=== PATIENT | male | born 1940 ===

== ENCOUNTER 2021-01-14 09:40 | Outpatient (CLI) | payer OTHER | END 2021-01-14 11:21 | disposition home or self-care (01) | LOC: SONOGRAMA 09:40 | PROVIDERS: ATTEND Pathology Anatomic Pathology & Clinical Pathology | DX: E04.1 Nontoxic single thyroid nodule (principal); E07.89 Other specified disorders of thyroid; E04.8 Other specified nontoxic goiter ==